=== PATIENT | female | born 1965 | race Caucasian/White ===

== ENCOUNTER 2018-01-30 04:32 | Emergency (ER) | payer OTHER ==
[~2018-01-30] VITALS: Ht 165.1 cm; Wt 72.6 kg
[2018-01-30 04:38] VITALS: BP 137/60
--- NOTE | 2018-01-30 04:41 | NUR ---
Pt ambulated to bed 2 with VSS.
--- NOTE | 2018-01-30 04:47 | NUR ---
PT BIB FAMILY FOR L LOWER EXTREMITY PAIN. PT REPORTS PAIN AT 8/10 THAT HAS RADIATED UP HER LEG AND BACK. PT STATES THAT SHE THINKS SHE WAS BITTEN BY SOMETHING 2 DAYS AGO. SMALL RASH PRESENT ON MEDIAL L ANKLE. L ANKLE AND LEG HAS ERYTHEMA, EDEMA, AND WARM TO TOUCH. PT HAS FULL RANGE OF MOTION TO L FOOT, LEG, AND TOES. PT IS AFEBRILE. ER MD TO SEE PT. SAFETY PRECAUTIONS IN PLACE. WILL CONTINUE TO MONITOR.
[2018-01-30] MEDS ORDERED: traMADol 50 MG TAB PO ONE (05:00)
[2018-01-30] MEDS ORDERED: SULFAMETH/TRIMETH DS 800/160MG 1 TAB PO ONE (05:00)
[2018-01-30] MEDS ORDERED: IBUPROFEN 800 MG TAB PO ONE (05:00)
[2018-01-30 05:19] VITALS: BP 137/60
--- NOTE | 2018-01-30 05:19 | NUR ---
Patient discharged with v/s stable. Written and verbal after care instructions given and explained. Patient alert, oriented and verbalized understanding of instructions. Ambulatory with steady gait. All questions addressed prior to discharge. ID band removed. Patient advised to follow up with PMD. Rx of BACTRIM, TRAMADOL, AND MOTRIN given. Patient educated on indication of medication including possible reaction and side effects. Opportunity to ask questions provided and answered.
== END 2018-01-30 05:19 | disposition home or self-care (01) ==
LOC: MED 04:32
DX: S80.862A Insect bite (nonvenomous), left lower leg, initial encounter (principal); L03.116 Cellulitis of left lower limb; R03.0 Elevated blood-pressure reading, without diagnosis of hypertension; Z88.0 Allergy status to penicillin; Z88.5 Allergy status to narcotic agent; W57.XXXA Bitten or stung by nonvenomous insect and other nonvenomous arthropods, initial encounter; Y93.89 Activity, other specified; Y92.89 Other specified places as the place of occurrence of the external cause; Y99.8 Other external cause status
CPT/HCPCS: 99284

== ENCOUNTER 2018-07-03 21:59 | Emergency (ER) | payer OTHER ==
[~2018-07-03] VITALS: Ht 165.1 cm; Wt 79.4 kg
[2018-07-03 22:13] VITALS: BP 140/80
--- NOTE | 2018-07-03 22:16 | NUR ---
TO LOBBY A/W BED, AMBULATORY
--- NOTE | 2018-07-03 22:37 | NUR ---
PT AMBULATED TO ER BED 07
--- NOTE | 2018-07-03 22:40 | NUR ---
PT TO ED WITH C/O RT LEG PAIN AND SWELLING X 2 DAYS. PT REPORTS SEEING URGENT CARE DR AND DX WITH CELLULITIS AND GIVEN RX OF BACTRIM. RT LEG IS SWOLLEN, RED, AND HOT TO TOUCH. CMS INTACT. FULL ROM PRESENT. PEDAL PULSE PRESENT AND EQUAL. PT PLACED INTO BED, PENDING MD JUNG.
[2018-07-03] MEDS ORDERED: NACL 0.9% 1,000 ML IV ONE (23:10)
[2018-07-03] MEDS ORDERED: KETOROLAC 30 MG/ML VIAL IVP ONE (23:10)
[2018-07-03 23:37] LABS: BASOPHILS # (AUTO) 0.1 K/uL (0.00-0.22); BASOPHILS % (AUTO) 0.7 % (0.0-2.0); EOSINOPHILS # (AUTO) 0.4 K/uL (0-0.4); EOSINOPHILS % (AUTO) 5.3 % (0.0-4.0); HEMOGLOBIN 12.8 g/dL (12.0-16.0); LYMPHOCYTES # (AUTO) 2.1 K/uL (2.5-16.5); LYMPHOCYTES % (AUTO) 26.6 % (20.5-51.1); MEAN CORPUSCULAR HEMOGLOBIN 28 pg (27-31); MEAN CORPUSCULAR HGB CONC 33 g/dL (33-37); MEAN CORPUSCULAR VOLUME 84.1 fL (80-94); MONOCYTES # (AUTO) 0.7 K/uL (0.8-1.0); MONOCYTES % (AUTO) 8.5 % (1.7-9.3); NEUTROPHILS # (AUTO) 4.7 K/uL (1.8-7.7); NEUTROPHILS % (AUTO) 58.9 % (42.2-75.2); PLATELET COUNT (AUTO) 340 K/uL (140-450); RED BLOOD CELL COUNT(AUTO) 4.64 MIL/uL (4.20-5.40); RED CELL DISTRIBUTION WIDTH 13.7 % (11.6-13.7); WHITE BLOOD COUNT (AUTO) 7.9 K/uL (4.8-10.8)
[2018-07-04 00:01] LABS: ALBUMIN 3.2 g/dL (3.4-5.0); ANION GAP 8.6 (8-16); CARBON DIOXIDE 28.2 mmol/L (21-32); CREATININE 0.9 mg/dL (0.6-1.3); POTASSIUM 3.8 mmol/L (3.5-5.1); TOTAL BILIRUBIN 0.1 mg/dL (0.0-1.0)
[2018-07-04 00:17] LABS: PROTHROMBIN TIME 9.5 secs (10.8-13.4)
[2018-07-04] MEDS ORDERED: cefTRIAXone 1,000 MG VIAL ONE (01:39)
--- NOTE | 2018-07-04 02:20 | NUR ---
IV removed, catheter intact and site benign. Applied folded 4x4 gauze and tape to stop bleeding.
[2018-07-04 02:22] VITALS: BP 134/69
--- NOTE | 2018-07-04 02:22 | NUR ---
Patient discharged with v/s stable. Written and verbal after care instructions given and explained. Patient alert, oriented and verbalized understanding of instructions. Ambulatory with steady gait. All questions addressed prior to discharge. ID band removed. Patient advised to follow up with PMD. Rx of CLEOCIN, NAPROSYN given. Patient educated on indication of medication including possible reaction and side effects. Opportunity to ask questions provided and answered.
[2018-07-04] MEDS ORDERED: SODIUM CHLORIDE FLUSH 10 ML SYR IVF SCH (05:00)
== END 2018-07-04 02:22 | disposition home or self-care (01) ==
LOC: MED 21:59
DX: L03.115 Cellulitis of right lower limb (principal); Z88.0 Allergy status to penicillin; Z88.5 Allergy status to narcotic agent; Z88.8 Allergy status to other drugs, medicaments and biological substances
CPT/HCPCS: 36415; 80053; 85025; 85379; 85610; 85730; 96365; 96375; 99283; J0696; J1885; J7030

== ENCOUNTER 2018-07-13 09:46 | Emergency (ER) | payer OTHER ==
[~2018-07-13] VITALS: Ht 165.1 cm; Wt 77.1 kg
[2018-07-13 09:58] VITALS: BP 138/72
--- NOTE | 2018-07-13 10:11 | NUR ---
PT AMB TO BED 11 AT THIS TIME
[2018-07-13] MEDS ORDERED: NACL 0.9% 1,000 ML IV SCH (10:37)
[2018-07-13] MEDS ORDERED: KETOROLAC 15 MG/ML VIAL IVP ONE (10:40)
--- NOTE | 2018-07-13 10:44 | NUR ---
EKG IN PROGRESS
--- NOTE | 2018-07-13 11:13 | NUR ---
US AT BEDSIDE
[2018-07-13 11:25] LABS: BASOPHILS # (AUTO) 0.1 K/uL (0.00-0.22); BASOPHILS % (AUTO) 0.7 % (0.0-2.0); EOSINOPHILS # (AUTO) 0.3 K/uL (0-0.4); EOSINOPHILS % (AUTO) 3.8 % (0.0-4.0); HEMATOCRIT 38.3 % (36-48); HEMOGLOBIN 12.5 g/dL (12.0-16.0); LYMPHOCYTES # (AUTO) 2.8 K/uL (2.5-16.5); LYMPHOCYTES % (AUTO) 35.8 % (20.5-51.1); MEAN CORPUSCULAR HEMOGLOBIN 27 pg (27-31); MEAN CORPUSCULAR HGB CONC 33 g/dL (33-37); MEAN CORPUSCULAR VOLUME 83.5 fL (80-94); MONOCYTES # (AUTO) 0.6 K/uL (0.8-1.0); NEUTROPHILS # (AUTO) 4.1 K/uL (1.8-7.7); NEUTROPHILS % (AUTO) 51.7 % (42.2-75.2); PLATELET COUNT (AUTO) 374 K/uL (140-450); RED BLOOD CELL COUNT(AUTO) 4.58 MIL/uL (4.20-5.40); RED CELL DISTRIBUTION WIDTH 13.7 % (11.6-13.7); WHITE BLOOD COUNT (AUTO) 7.9 K/uL (4.8-10.8)
[2018-07-13 11:32] LABS: ANION GAP 11.6 (8-16); CARBON DIOXIDE 26.9 mmol/L (21-32); CREATININE 0.8 mg/dL (0.6-1.3); POTASSIUM 3.5 mmol/L (3.5-5.1)
[2018-07-13 11:35] LABS: PROTHROMBIN TIME 9.3 secs (10.8-13.4)
[2018-07-13 11:37] LABS: ALBUMIN 3.3 g/dL (3.4-5.0); TOTAL BILIRUBIN 0.1 mg/dL (0.0-1.0)
[2018-07-13 11:53] LABS: APPEARANCE,URINE SL CLOUDY (CLEAR); BILIRUBIN,URINE NEGATIVE (NEGATIVE); BLOOD, URINE NEGATIVE (NEGATIVE); COLOR,URINE YELLOW (YELLOW); LEUKOCYTE ESTERASE ,URINE 1+ (NEGATIVE); NITRITE, URINE NEGATIVE (NEGATIVE); UGLUCOSE NEGATIVE (NEGATIVE)
--- NOTE | 2018-07-13 12:13 | NUR ---
dr kline re-evaluating at bedside
[2018-07-13 12:16] LABS: RBC,URINE 0-5 /HPF (0-5)
[2018-07-13 12:17] LABS: WBC,URINE 16-25 (MOD) /HPF (0-5)
[2018-07-13 12:18] LABS: YEAST,URINE Many /HPF (None Seen)
[2018-07-13 12:19] LABS: CALCIUM OXALATE CRYSTALS,UR 0-10 /HPF (None Seen)
--- NOTE | 2018-07-13 12:45 | NUR ---
Patient discharged with v/s stable. Written and verbal after care instructions given and explained. Patient alert, oriented and verbalized understanding of instructions. Ambulatory with steady gait. All questions addressed prior to discharge. ID band removed. Patient advised to follow up with PMD. Rx of ZOFRAN AND LAMITOL given. Patient educated on indication of medication including possible reaction and side effects. Opportunity to ask questions provided and answered.
[2018-07-13 12:46] VITALS: BP 116/80
== END 2018-07-13 12:45 | disposition home or self-care (01) ==
LOC: MED 09:46
DX: L03.115 Cellulitis of right lower limb (principal); R19.7 Diarrhea, unspecified; R11.0 Nausea; R39.15 Urgency of urination; R94.31 Abnormal electrocardiogram [ECG] [EKG]; Z90.49 Acquired absence of other specified parts of digestive tract; Z88.0 Allergy status to penicillin; Z88.5 Allergy status to narcotic agent; Z88.8 Allergy status to other drugs, medicaments and biological substances
CPT/HCPCS: 36415; 80053; 81001; 81025; 83605; 85025; 85610; 85730; 87040; 87086; 90471; 90715; 93005; 93970; 96374; 99284; J1885; Q0092

== ENCOUNTER 2018-09-29 03:33 | Emergency (ER) | payer OTHER ==
[~2018-09-29] VITALS: Ht 165.1 cm; Wt 72.6 kg
[2018-09-29 03:37] VITALS: BP 143/90
--- NOTE | 2018-09-29 03:37 | NUR ---
PT TAKEN TO BED 8
--- NOTE | 2018-09-29 03:59 | NUR ---
53/F PRESENTS TO ED, C/O POSSIBLE INSECT BITES TO BLE. MULTIPLE AREAS OF ERYTHEMA AND SWELLING NOTED ON BLE. PT C/O SEVERE ITCHING ON BLE AND POSTERIOR NECK AND OCCIPITAL SCALP, NOTED WITH ERYTHEMA. PT AWAKE AND ALERT, SKIN WARM AND DRY, RR EVEN AND UNLABORED. HX APPENDECTOMY OTC BENADRYL WITH LITTLE RELIEF
--- NOTE | 2018-09-29 04:13 | NUR ---
Dr. Rockwell examining patient.
[2018-09-29] MEDS ORDERED: diphenhydrAMINE 50 MG CAP PO ONE (04:20)
[2018-09-29 05:13] VITALS: BP 150/74
== END 2018-09-29 05:14 | disposition home or self-care (01) ==
LOC: MED 03:33
DX: R21 Rash and other nonspecific skin eruption (principal); Z90.49 Acquired absence of other specified parts of digestive tract; Z88.0 Allergy status to penicillin; Z88.8 Allergy status to other drugs, medicaments and biological substances
CPT/HCPCS: 99283; Q0163

== ENCOUNTER 2018-10-21 18:32 | Emergency (ER) | payer OTHER ==
[~2018-10-21] VITALS: Ht 165.1 cm; Wt 79.4 kg
--- NOTE | 2018-10-21 18:34 | NUR ---
PT BIBA TO BED 12.
[2018-10-21 18:37] VITALS: BP 136/77
--- NOTE | 2018-10-21 18:49 | NUR ---
PATIENT BIBA W C/O SUDDEN ONSET UPPER ABD PAIN RADIATING TO LOWER ABD 8/10 ACCOMPANIED BY UNCONTROLLABLE DIARRHEA. PT STATES THE ONLY MEDICATION SHE TOOK TODAY IS ATARAX AND SHE HAS TAKEN THAT BEFORE WITHOUT SIDE EFFECTS. PT DENIES ANY FEVER, CP, SOB, OR COUGH AT THIS TIME; PATIENT STATES PAIN OF 8/10 AT THIS TIME; VSS; PATIENT POSITIONED FOR COMFORT; HOB ELEVATED; BEDRAILS UP X2; BED DOWN. ER MD MADE AWARE OF PT STATUS.
--- NOTE | 2018-10-21 19:10 | NUR ---
REPORT GIVEN TO DREDGE CAPTAIN NURSE FOR CONTINUE OF CARE.
[2018-10-21] MEDS ORDERED: NACL 0.9% 1,000 ML IV ONE (20:15)
--- NOTE | 2018-10-21 20:28 | NUR ---
Dr. Yin examinig patient.
[2018-10-21 20:41] LABS: BASOPHILS % (AUTO) 0.3 % (0.0-2.0); EOSINOPHILS # (AUTO) 0.4 K/uL (0-0.4); EOSINOPHILS % (AUTO) 4.6 % (0.0-4.0); HEMATOCRIT 38.9 % (36-48); HEMOGLOBIN 12.8 g/dL (12.0-16.0); LYMPHOCYTES # (AUTO) 2.2 K/uL (2.5-16.5); LYMPHOCYTES % (AUTO) 24.5 % (20.5-51.1); MEAN CORPUSCULAR HEMOGLOBIN 28 pg (27-31); MEAN CORPUSCULAR HGB CONC 33 g/dL (33-37); MEAN CORPUSCULAR VOLUME 83.9 fL (80-94); MONOCYTES # (AUTO) 0.9 K/uL (0.8-1.0); MONOCYTES % (AUTO) 9.5 % (1.7-9.3); NEUTROPHILS # (AUTO) 5.5 K/uL (1.8-7.7); NEUTROPHILS % (AUTO) 61.1 % (42.2-75.2); PLATELET COUNT (AUTO) 355 K/uL (140-450); RED BLOOD CELL COUNT(AUTO) 4.63 MIL/uL (4.20-5.40)
[2018-10-21 20:52] LABS: CARBON DIOXIDE 30.3 mmol/L (21-32); CREATININE 0.8 mg/dL (0.6-1.3); POTASSIUM 4.3 mmol/L (3.5-5.1)
[2018-10-21 20:58] LABS: TOTAL BILIRUBIN 0.2 mg/dL (0.0-1.0)
[2018-10-21 21:41] LABS: APPEARANCE,URINE HAZY (CLEAR); BILIRUBIN,URINE NEGATIVE (NEGATIVE); BLOOD, URINE 3+ (NEGATIVE); COLOR,URINE YELLOW (YELLOW); LEUKOCYTE ESTERASE ,URINE TRACE (NEGATIVE); NITRITE, URINE NEGATIVE (NEGATIVE); UGLUCOSE NEGATIVE (NEGATIVE)
--- NOTE | 2018-10-21 22:30 | NUR ---
PT DISCHARGED WITH PAPERWORK. NO RX PROVIDED. EDUCATED PT REGARDING D/C DIAGNOSIS AND INSTRUCTIONS. PT VERBALIZED UNDERSTANDING OF TEACHING. TOLD PT TO FOLLOW UP WITH PCP AND WHEN TO RETURN TO ED. PT VSS. NO DIARRHEA. ALL QUESTIONS ANSWERED.
[2018-10-21 22:32] VITALS: BP 128/76
== END 2018-10-21 22:30 | disposition home or self-care (01) ==
LOC: MED 18:32
DX: A08.4 Viral intestinal infection, unspecified (principal); Z90.49 Acquired absence of other specified parts of digestive tract; Z88.0 Allergy status to penicillin; Z88.5 Allergy status to narcotic agent; Z91.040 Latex allergy status; Z88.8 Allergy status to other drugs, medicaments and biological substances
CPT/HCPCS: 36415; 80053; 81001; 81025; 82150; 83690; 84703; 85025; 87086; 93005; 96360; 96361; 99284; J7030

== ENCOUNTER 2019-01-25 15:01 | Emergency (ER) | payer OTHER ==
[~2019-01-25] VITALS: Ht 165.1 cm; Wt 82.7 kg
[2019-01-25 15:07] VITALS: BP 130/50
--- NOTE | 2019-01-25 15:51 | NUR ---
Pt ambulated to bed 7.
--- NOTE | 2019-01-25 16:04 | NUR ---
C/O L SIDED FACIAL NUMBNESS & R ARM NUMBNESS BEGINNING TODAY AFTER PT WOKE UP FROM A NAP TODAY. 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 PT ALSO REPORTS CELLULITIS TO BLE OVER THE "LAST FEW MONTHS" THAT WAS BEING TREATED BUT IS NOT GOING AWAY. NO FACIAL DROOP NOTED, NO UNILATERAL WEAKNESS NOTED, NO SLURRED SPEECH NOTED. PT IS ALERT AND ANSWERING QUESTIONS APPROPRIATELY. PT DENIES N/V, OR RECENT HEAD INJURY. BED IN LOW POSITION, SIDE RAIL UP X1. PT PLACED IN GOWN.
--- NOTE | 2019-01-25 16:27 | NUR ---
Dr. Bond is evaluating the patient at bedside.
--- NOTE | 2019-01-25 16:55 | NUR ---
PT IS NOT HOMELESS, HOMELESS ASSESSMENT NOT DONE
[2019-01-25 16:56] VITALS: BP 121/55
--- NOTE | 2019-01-25 16:57 | NUR ---
Patient discharged with v/s stable. Written and verbal after care instructions given and explained. Patient alert, oriented and verbalized understanding of instructions. Ambulatory with steady gait. All questions addressed prior to discharge. ID band removed. Patient advised to follow up with PMD. Rx of CLARITIN, BACTRIM, IBUPROFEN given. Patient educated on indication of medication including possible reaction and side effects. Opportunity to ask questions provided and answered.
== END 2019-01-25 16:57 | disposition home or self-care (01) ==
LOC: MED 15:01
DX: L03.115 Cellulitis of right lower limb (principal); L29.9 Pruritus, unspecified; Z88.0 Allergy status to penicillin; Z88.5 Allergy status to narcotic agent; Z88.8 Allergy status to other drugs, medicaments and biological substances; Z91.040 Latex allergy status; Z98.890 Other specified postprocedural states
CPT/HCPCS: 99283

== ENCOUNTER 2019-08-19 01:45 | Emergency (ER) | payer OTHER ==
[~2019-08-19] VITALS: Ht 165.1 cm; Wt 83.9 kg
[2019-08-19 01:53] VITALS: BP 142/96
--- NOTE | 2019-08-19 02:01 | NUR ---
pt ambulated to bed 4.
--- NOTE | 2019-08-19 02:03 | NUR ---
53 Y/O FEMALE PRESENTED TO ED C/O BILATERAL LEG SWELLING AND REDNESS X 3 DAYS. OBSERVED BILATERAL CELLULITIS ON THE LOWER EXTREMITIES. NO DRAINAGE NOTED. PT DENIES N/V/D/FEVER/BODY ACHES/CHILLS. PT STATES SHE TOOK BENADRYL AT NOON YESTERDAY W/ SOME RELIEF. PT BREATHING EVEN AND UNLABORED. VSS. A/O X4. PT RESTING IN BED, LOCKED AND IN LOWEST POSITION, HOB ELEVATED, SIDE RAIL X1 , PT PROVIDED BLANKET FOR COMFORT. PMH: ASTHMA AX: PENICILLINS, CODEINE, IODINE, LATEX
--- NOTE | 2019-08-19 02:05 | NUR ---
ERMD AT BEDSIDE FOR EVALUATION.
[2019-08-19] MEDS ORDERED: SULFAMETH/TRIMETH DS 800/160MG 1 TAB PO ONE (02:10)
[2019-08-19] MEDS ORDERED: KETOROLAC 60 MG/2 ML VIAL IM ONE (02:10)
[2019-08-19] MEDS ORDERED: CEPHALEXIN 500 MG CAP PO ONE (02:10)
[2019-08-19 02:35] VITALS: BP 142/96
--- NOTE | 2019-08-19 02:35 | NUR ---
Patient discharged with v/s stable. Written and verbal after care instructions given and explained. Patient alert, oriented and verbalized understanding of instructions. Ambulatory with steady gait. All questions addressed prior to discharge. ID band removed. Patient advised to follow up with PMD. Rx of KEFLEX,BATRIM and MOTRIN given. Patient educated on indication of medication including possible reaction and side effects. Opportunity to ask questions provided and answered.
== END 2019-08-19 02:35 | disposition home or self-care (01) ==
LOC: MED 01:45
DX: L03.116 Cellulitis of left lower limb (principal); L03.115 Cellulitis of right lower limb; Z88.0 Allergy status to penicillin; Z88.5 Allergy status to narcotic agent; Z88.8 Allergy status to other drugs, medicaments and biological substances; Z91.040 Latex allergy status; W57.XXXA Bitten or stung by nonvenomous insect and other nonvenomous arthropods, initial encounter; Y93.89 Activity, other specified; Y92.89 Other specified places as the place of occurrence of the external cause; Y99.8 Other external cause status
CPT/HCPCS: 96372; 99283; J1885

== ENCOUNTER 2019-08-21 16:21 | Emergency (ER) | payer OTHER ==
[~2019-08-21] VITALS: Ht 170.2 cm; Wt 86.2 kg
--- NOTE | 2019-08-21 16:25 | NUR ---
PT AMBULATED TO ER BED 04
[2019-08-21 16:35] VITALS: BP 146/62
[2019-08-21] MEDS ORDERED: diphenhydrAMINE 50 MG/ML VIAL IM ONE (16:35)
--- NOTE | 2019-08-21 16:50 | NUR ---
53 Y/O FEMALE PRESENTS WITH ALLERGIC REACTION S/P TAKING KEFLEX AND BACTRIM TWO NIGHTS AGO FOR CELLULITIS. LIPS ARE INFLAMED, TONGUE IS INFLAMED BUT THERE IS NO OBSTRUCTION TO AIR WAY. RESP EVEN AND UNLABORED. LUNG SOUNDS CLEAR IN BILAT LOBES. BILAT LOWER EXTREMITY SWELLING/ CELLULITIS NOTED. PT IS NSR TACHY. VSS. SP02 99% ON RA. DENIES ANY DRUG OR ALCOHOL USE. AAOX4. ABLE TO AMBULATE TO BATHROOM. NO PMH ALLERGIES: PENICILLINS. CODEINE, IODINE, LATEX
[2019-08-21 17:38] LABS: BARBITURATE, URINE NEGATIVE ng/ml (NEG <=200); BENZODIAZEPINE, URINE POSITIVE ng/mL (NEG <=200); CANNABINOID, URINE NEGATIVE ng/mL (NEG <=50); COCAINE, URINE NEGATIVE ng/mL (NEG <=300); OPIATE, URINE NEGATIVE ng/mL (NEG <=2000); PHENCYCLIDINE SCREEN,URINE NEGATIVE ng/mL (NEG <=25)
--- NOTE | 2019-08-21 18:17 | NUR ---
solo cruz discharge pt.
[2019-08-21 18:19] VITALS: BP 139/86
--- NOTE | 2019-08-21 18:21 | NUR ---
Patient discharged with v/s stable. Written and verbal after care instructions given and explained regarding rash . Patient alert, oriented and verbalized understanding of instructions. Ambulatory with steady gait. All questions addressed prior to discharge. ID band removed. Patient advised to follow up with PMD. Rx of bacitracin ointment and diphenhydramine given. Patient educated on indication of medication including possible reaction and side effects. Opportunity to ask questions provided and answered.solo cruz dc pt.
== END 2019-08-21 18:21 | disposition home or self-care (01) ==
LOC: MED 16:21
DX: R21 Rash and other nonspecific skin eruption (principal); Z88.0 Allergy status to penicillin; Z88.8 Allergy status to other drugs, medicaments and biological substances; Z88.5 Allergy status to narcotic agent; Z91.040 Latex allergy status
CPT/HCPCS: 80305; 96372; 99283; J1200